=== PATIENT | male | born 1990 | race Caucasian/White ===

== ENCOUNTER 2020-03-03 12:31 | Outpatient (CLI) | payer OTHER, SELFPAY ==
--- NOTE | 2020-03-03 13:04 | XR_ITS ---
WS: [id number] EXAM: ABDOMINAL KUB DATE OF EXAMINATION: 03/03/2020, 1310 hours COMPARISON: None. HISTORY: Patient is 29 years old with new onset of left flank pain. FINDINGS: The bowel gas pattern is normal. There is however fairly diffuse increased stool throughout the colon . No calcifications are seen to suggest renal or ureteral calculi. Solid organ silhouettes do not genet ear enlarged. Slight scoliosis in the spine. Question positional. XR/XR KUB [id number] IMPRESSION: Full of stool. Normal bowel gas pattern. No calcifications seen to suggest brian l or ureteral calculi.
== END 2020-03-03 12:32 | disposition home or self-care (01) ==
LOC: RAD 12:34
PROVIDERS: Visit Provider Nurse Practitioner
DX: N20.0 Calculus of kidney (principal)
CPT/HCPCS: 74018; 81000